=== PATIENT | male | born 1960 | race Caucasian/White ===

== ENCOUNTER → 2021-11-11 | Day surgery (SDC) | payer OTHER ==
[~2021-11-11] VITALS: Ht 185.4 cm; Wt 115.2 kg
[~2021-11-11] MED LIST: ASCORBIC ACID500 MG PO; MEDROL 4MG DOSEP4 MG PO; vitamin D PO
== END | disposition home or self-care (01) ==
LOC: FAS 08:12
DX: Z12.11 Encounter for screening for malignant neoplasm of colon (principal); K63.89 Other specified diseases of intestine; K21.9 Gastro-esophageal reflux disease without esophagitis; I10 Essential (primary) hypertension; C44.92 Squamous cell carcinoma of skin, unspecified; Z88.0 Allergy status to penicillin
CPT/HCPCS: J2704; J7120